=== PATIENT | female | born 1965 | race African-American/Black ===

== ENCOUNTER 2025-04-23 20:30 | Inpatient (IN) | payer MEDICAID ==
[2025-04-23] MEDS ORDERED: Glucagon 1 MG/ML KIT IM PRN (23:57)
[2025-04-23] MEDS ORDERED: Dextrose 50% Abboject 50 ML SYRINGE SLOW IVP PRN (23:57)
[2025-04-23] MEDS ORDERED: Melatonin 3 MG TAB PO PRN (23:59)
[2025-04-24] MEDS ORDERED: Calcium Carbonate 500 MG ChewTAB PO PRN (00:05)
[2025-04-24] MEDS ORDERED: Senokot S 8.6-50 MG TAB PO PRN (00:05)
[2025-04-24] MEDS ORDERED: OxyCODONE IR 30 MG TAB PO PRN (00:05)
[2025-04-24] MEDS ORDERED: Ondansetron PF 4 MG/2 ML Vial IVP PRN (00:05)
[2025-04-24] MEDS ORDERED: Electrolyte Replacement Protocol 1 EACH FS SCH (00:15)
[2025-04-24] MEDS: oxyCODONE 5 MG TAB PO PRN (01:18)
[2025-04-24] MEDS: Acetaminophen 325 MG TAB PO PRN (04:34)
[2025-04-24] MEDS: HYDROmorphone 0.5 MG/0.5 ML SYRINGE SLOW IVP SCH (04:35)
[2025-04-24] MEDS: diphenhydrAMINE 50 MG/ML VIAL IVP SCH (04:35)
[2025-04-24 05:11] LABS: Hematocrit 18.1 % (36.0-47.0); Hemoglobin 6.2 g/dL (12.0-16.0); Mean Corpuscular Hemoglobin 32.0 pg (27.0-31.0); Mean Corpuscular Volume 93.3 fL (78.0-98.0); Platelet Count 253 10x3/uL (130-400); Red Blood Cell (RBC) Count 1.94 mill/uL (4.20-5.40); White Blood Cell (WBC) Count 18.56 10x3/uL (4.8-10.8)
[2025-04-24 05:24] LABS: ALT (SGPT) 65 U/L (Less than 34); AST (SGOT) 97 U/L (11-34); Albumin 3.6 g/dL (3.1-4.5); Alkaline Phosphatase 137 U/L (40-110); Anion Gap 12 mmol/L (10-20); BUN (Urea Nitrogen) 18 mg/dL (9.8-20.1); Bilirubin, Total 2.9 mg/dL (0.3-1.2); Calc. Creatinine Clearance 101 mL/min (70-130); Calcium 8.6 mg/dL (7.8-10.44); Carbon Dioxide 27 mmol/L (22-29); Chloride 106 mmol/L (98-107); Globulin 4.0 g/dL (2.4-3.5); Glucose 123 mg/dL (70-105); Potassium 4.3 mmol/L (3.5-5.1); Sodium 141 mmol/L (136-145)
[2025-04-24 05:46] LABS: Anisocytosis SLIGHT = 6-15 cells HPF (0-5); Nucleated RBC (Manual Ct) 3 % (0); Platelet Adequacy Comment Platelets Normal; Schistocytes SLIGHT = 2-5 cells HPF (0-1); Sickle Cells SLIGHT = 1-5 cells HPF (None Seen); Smudge Cells 12.9 %; Target Cells SLIGHT = 2-5 cells HPF (0-1)
[2025-04-24] MEDS: Carvedilol 3.125 MG TAB PO SCH (08:26)
[2025-04-24] MEDS: Sertraline 25 MG TAB PO SCH (08:26)
[2025-04-24] MEDS: glipiZIDE 5 MG TAB PO SCH (08:26)
[2025-04-24] MEDS: Folic Acid 1 MG TAB PO SCH (08:27)
[2025-04-24] MEDS: Gabapentin 300 MG CAP PO SCH (08:27)
[2025-04-24] MEDS: Famotidine/PF 20 mg/2ml Vial SLOW IVP SCH (08:28)
[2025-04-24] MEDS ORDERED: VOXELOTOR 500 MG PO SCH (09:00)
[2025-04-24] MEDS ORDERED: Albuterol 200 PUFF (6.7GM INHALER) INH PRN (09:20)
[2025-04-24] MEDS ORDERED: Senokot 8.6 MG TAB PO PRN (09:20)
[2025-04-24 11:19] VITALS: BMI 32.2
[2025-04-24 11:38] LABS: Hematocrit 21.5 % (36.0-47.0); Hemoglobin 7.3 g/dL (12.0-16.0)
[2025-04-24] MEDS ORDERED: Iopamidol-370 76% 500 ML MDV (1 ML CHARGE) ONE (12:43)
[2025-04-24] MEDS: Furosemide 20 MG TAB PO SCH (16:55)
[2025-04-24] MEDS: Nitroglycerin 0.4 MG TAB (25 Tab Bottle) SL PRN (18:53)
[2025-04-24] MEDS: Apixaban 2.5 MG TAB PO SCH (20:15)
[2025-04-24] MEDS ORDERED: Non-Formulary Item 1 EACH (Budesonide-Formoterol [Symbicort 160-4.5] 160 MG/4.5 MG Aer) INH SCH (21:00)
[2025-04-24] MEDS: Mometasone 200 MCG/Formoterol 5 MCG 120 PUFF INHALER INH SCH (21:11)
[2025-04-25] MEDS: cefTRIAXone\\ROCEPHIN 1 GM in Sodium Chloride 0.9% 100 ML IVPB SCH ×2 (01:50→23:31)
[2025-04-25] MEDS: Azithromycin 500 MG in Sodium Chloride 0.9% 250 ML 250 ML IVPB SCH (01:51)
[2025-04-25] MEDS: diphenhydrAMINE 25 MG CAP PO PRN (02:48)
[2025-04-25 06:41] LABS: #Basophils 0.16 10x3/uL (0.0-0.2); #Eosinophils 1.07 10x3/uL (0.0-0.7); #Monocytes 1.75 10x3/uL (0.11-0.59); #Neutrophils 11.27 10x3/uL (1.40-6.50); %Basophils 0.9 % (0.0-1.0); %Eosinophils 5.9 % (0.0-10.0); %Lymphocytes 20.3 % (21.0-51.0); %Monocytes 9.7 % (0.0-10.0); %Neutrophils 62.5 % (42.0-75.0); Hematocrit 22.0 % (36.0-47.0); Hemoglobin 7.7 g/dL (12.0-16.0); Mean Corpuscular Hemoglobin 31.8 pg (27.0-31.0); Mean Corpuscular Volume 90.9 fL (78.0-98.0); Platelet Count 183 10x3/uL (130-400); Red Blood Cell (RBC) Count 2.42 mill/uL (4.20-5.40); White Blood Cell (WBC) Count 18.03 10x3/uL (4.8-10.8)
[2025-04-25 07:01] LABS: Anion Gap 13 mmol/L (10-20); BUN (Urea Nitrogen) 14 mg/dL (9.8-20.1); Calc. Creatinine Clearance 107 mL/min (70-130); Calcium 8.7 mg/dL (7.8-10.44); Carbon Dioxide 28 mmol/L (22-29); Chloride 104 mmol/L (98-107); Glucose 105 mg/dL (70-105); Potassium 4.7 mmol/L (3.5-5.1); Sodium 140 mmol/L (136-145)
[2025-04-25] MEDS: Aspirin 81 mg Enteric Coated Tablet PO SCH (08:39)
[2025-04-25] MEDS ORDERED: DEFERASIROX 360 MG PO SCH ×2 (09:00)
[2025-04-25] MEDS ORDERED: PHOS-NAK 1 PKT PACK PO PRN (09:45)
[2025-04-25] MEDS ORDERED: Magnesium 2 GM/50 ML(in water) 2 GM in Premix 1 BAG IVPB PRN (09:45)
[2025-04-25] MEDS ORDERED: Potassium Chloride 20 MEQ in Premix 1 BAG IVPB PRN (09:45)
[2025-04-26] MEDS: Azithromycin 500 MG in Sodium Chloride 0.9% 250 ML 250 ML IVPB SCH (01:37)
[2025-04-26 08:53] LABS: Anion Gap 15 mmol/L (10-20); BUN (Urea Nitrogen) 12 mg/dL (9.8-20.1); Calc. Creatinine Clearance 132 mL/min (70-130); Calcium 8.6 mg/dL (7.8-10.44); Carbon Dioxide 27 mmol/L (22-29); Chloride 103 mmol/L (98-107); Glucose 107 mg/dL (70-105); Potassium 4.6 mmol/L (3.5-5.1); Sodium 140 mmol/L (136-145)
[2025-04-26 09:33] LABS: Anisocytosis MODERATE=16-30 cells HPF (0-5); Hematocrit 20.0 % (36.0-47.0); Hemoglobin 6.7 g/dL (12.0-16.0); Macrocytosis SLIGHT = 6-15 cells HPF (0-5); Mean Corpuscular Hemoglobin 30.7 pg (27.0-31.0); Mean Corpuscular Volume 91.7 fL (78.0-98.0); Nucleated RBC (Manual Ct) 1 % (0); Platelet Adequacy Comment Platelets Normal; Platelet Count 206 10x3/uL (130-400); Polychromasia SLIGHT = 2-3 cells HPF (0-2); Red Blood Cell (RBC) Count 2.18 mill/uL (4.20-5.40); Sickle Cells SLIGHT = 1-5 cells HPF (None Seen); Smudge Cells 4.9 %; Stomatocytes SLIGHT = 2-5 cells HPF (0-1); Target Cells MODERATE= 6-15 cells HPF (0-1); White Blood Cell (WBC) Count 16.02 10x3/uL (4.8-10.8)
[2025-04-26] MEDS: Famotidine 20 MG TAB PO SCH (20:18)
[2025-04-27 04:04] LABS: #Basophils 0.13 10x3/uL (0.0-0.2); #Eosinophils 1.01 10x3/uL (0.0-0.7); #Monocytes 1.75 10x3/uL (0.11-0.59); #Neutrophils 12.39 10x3/uL (1.40-6.50); %Basophils 0.7 % (0.0-1.0); %Eosinophils 5.6 % (0.0-10.0); %Lymphocytes 14.9 % (21.0-51.0); %Monocytes 9.7 % (0.0-10.0); %Neutrophils 68.3 % (42.0-75.0); Hematocrit 18.7 % (36.0-47.0); Hemoglobin 6.4 g/dL (12.0-16.0); Mean Corpuscular Hemoglobin 31.5 pg (27.0-31.0); Mean Corpuscular Volume 92.1 fL (78.0-98.0); Platelet Count 191 10x3/uL (130-400); Red Blood Cell (RBC) Count 2.03 mill/uL (4.20-5.40); White Blood Cell (WBC) Count 18.13 10x3/uL (4.8-10.8)
[2025-04-27 04:20] LABS: Anion Gap 11 mmol/L (10-20); BUN (Urea Nitrogen) 12 mg/dL (9.8-20.1); Calc. Creatinine Clearance 134 mL/min (70-130); Calcium 8.5 mg/dL (7.8-10.44); Carbon Dioxide 33 mmol/L (22-29); Chloride 100 mmol/L (98-107); Glucose 132 mg/dL (70-105); Potassium 4.4 mmol/L (3.5-5.1); Sodium 140 mmol/L (136-145)
[2025-04-27] MEDS ORDERED: diphenhydrAMINE 25 MG CAP PO PRN (10:15)
[2025-04-27] MEDS: diphenhydrAMINE 50 MG/ML VIAL IVP PRN (11:24)
[2025-04-27] MEDS: Furosemide 40 MG (4 mL) VIAL IVP PRN (15:25)
[2025-04-27] MEDS: Apixaban 2.5 MG TAB PO SCH (22:19)
[2025-04-28 07:45] LABS: Anion Gap 15 mmol/L (10-20); BUN (Urea Nitrogen) 24 mg/dL (9.8-20.1); Calc. Creatinine Clearance 85 mL/min (70-130); Calcium 9.1 mg/dL (7.8-10.44); Carbon Dioxide 30 mmol/L (22-29); Chloride 98 mmol/L (98-107); Glucose 117 mg/dL (70-105); Potassium 4.6 mmol/L (3.5-5.1); Sodium 138 mmol/L (136-145)
[2025-04-28 08:04] LABS: Hematocrit 25.4 % (36.0-47.0); Hemoglobin 8.5 g/dL (12.0-16.0); Mean Corpuscular Hemoglobin 30.5 pg (27.0-31.0); Mean Corpuscular Volume 91.0 fL (78.0-98.0); Platelet Count 210 10x3/uL (130-400); Red Blood Cell (RBC) Count 2.79 mill/uL (4.20-5.40); White Blood Cell (WBC) Count 20.58 10x3/uL (4.8-10.8)
[2025-04-28 08:57] LABS: Anisocytosis SLIGHT = 6-15 cells HPF (0-5); Giant Platelets 2.0 % (0-5); Macrocytosis SLIGHT = 6-15 cells HPF (0-5); Platelet Adequacy Comment Platelets Normal; Polychromasia SLIGHT = 2-3 cells HPF (0-2); Schistocytes SLIGHT = 2-5 cells HPF (0-1); Sickle Cells SLIGHT = 1-5 cells HPF (None Seen); Smudge Cells 9.8 %; Target Cells SLIGHT = 2-5 cells HPF (0-1); Toxic Granulation SLIGHT
[2025-04-28] MEDS ORDERED: Aquaphor 2.8 oz 80 GM JAR TOP PRN (10:56)
[2025-04-28] MEDS: diphenhydrAMINE 25 MG CAP PO PRN (12:06)
[2025-04-28] MEDS: Gabapentin 400 MG CAP PO SCH (16:06)
[2025-04-29 04:33] LABS: Hematocrit 23.4 % (36.0-47.0); Hemoglobin 8.2 g/dL (12.0-16.0); Mean Corpuscular Hemoglobin 31.3 pg (27.0-31.0); Mean Corpuscular Volume 89.3 fL (78.0-98.0); Platelet Count 200 10x3/uL (130-400); Red Blood Cell (RBC) Count 2.62 mill/uL (4.20-5.40); White Blood Cell (WBC) Count 18.87 10x3/uL (4.8-10.8)
[2025-04-29 05:06] LABS: Anisocytosis SLIGHT = 6-15 cells HPF (0-5); Macrocytosis SLIGHT = 6-15 cells HPF (0-5); Nucleated RBC (Manual Ct) 1 % (0); Platelet Adequacy Comment Platelets Normal; Polychromasia SLIGHT = 2-3 cells HPF (0-2); Sickle Cells SLIGHT = 1-5 cells HPF (None Seen); Smudge Cells 17.8 %; Target Cells SLIGHT = 2-5 cells HPF (0-1)
[2025-04-29 05:13] LABS: Anion Gap 13 mmol/L (10-20); BUN (Urea Nitrogen) 27 mg/dL (9.8-20.1); Calc. Creatinine Clearance 97 mL/min (70-130); Calcium 8.9 mg/dL (7.8-10.44); Carbon Dioxide 35 mmol/L (22-29); Chloride 99 mmol/L (98-107); Glucose 106 mg/dL (70-105); Magnesium 1.9 mg/dL (1.6-2.6); Potassium 4.9 mmol/L (3.5-5.1); Sodium 142 mmol/L (136-145)
[2025-04-29] MEDS: Divalproex Sodium DR 500 MG TAB PO SCH (21:00)
[2025-04-30 06:23] LABS: Hematocrit 24.3 % (36.0-47.0); Hemoglobin 8.0 g/dL (12.0-16.0); Mean Corpuscular Hemoglobin 30.2 pg (27.0-31.0); Mean Corpuscular Volume 91.7 fL (78.0-98.0); Platelet Count 209 10x3/uL (130-400); Red Blood Cell (RBC) Count 2.65 mill/uL (4.20-5.40); White Blood Cell (WBC) Count 18.78 10x3/uL (4.8-10.8)
[2025-04-30 06:40] LABS: Anion Gap 11 mmol/L (10-20); BUN (Urea Nitrogen) 29 mg/dL (9.8-20.1); Calc. Creatinine Clearance 99 mL/min (70-130); Calcium 8.9 mg/dL (7.8-10.44); Carbon Dioxide 32 mmol/L (22-29); Chloride 101 mmol/L (98-107); Glucose 109 mg/dL (70-105); Potassium 5.3 mmol/L (3.5-5.1); Sodium 139 mmol/L (136-145)
[2025-04-30 06:45] LABS: Macrocytosis MODERATE=16-30 cells HPF (0-5); Other Cell Types 1.0; Platelet Adequacy Comment Platelets Normal; Polychromasia SLIGHT = 2-3 cells HPF (0-2); Sickle Cells SLIGHT = 1-5 cells HPF (None Seen); Smudge Cells 4.8 %; Target Cells SLIGHT = 2-5 cells HPF (0-1)
[2025-04-30 15:35] LABS: Potassium 3.4 mmol/L (3.5-5.1)
[2025-04-30] MEDS: DC Electrolyte Protocol FS ONE (22:33)
[2025-05-01 06:02] LABS: Hematocrit 21.9 % (36.0-47.0); Hemoglobin 7.1 g/dL (12.0-16.0); Mean Corpuscular Hemoglobin 30.5 pg (27.0-31.0); Mean Corpuscular Volume 94.0 fL (78.0-98.0); Platelet Count 176 10x3/uL (130-400); Red Blood Cell (RBC) Count 2.33 mill/uL (4.20-5.40); White Blood Cell (WBC) Count 17.93 10x3/uL (4.8-10.8)
[2025-05-01 06:21] LABS: Anion Gap 8 mmol/L (10-20); BUN (Urea Nitrogen) 26 mg/dL (9.8-20.1); Calc. Creatinine Clearance 120 mL/min (70-130); Calcium 8.8 mg/dL (7.8-10.44); Carbon Dioxide 38 mmol/L (22-29); Chloride 103 mmol/L (98-107); Glucose 99 mg/dL (70-105); Potassium 5.2 mmol/L (3.5-5.1); Sodium 144 mmol/L (136-145)
[2025-05-01 07:32] LABS: Giant Platelets 1.0 % (0-5); Platelet Adequacy Comment Platelets Normal; Polychromasia SLIGHT = 2-3 cells HPF (0-2); Sickle Cells SLIGHT = 1-5 cells HPF (None Seen); Smudge Cells 1.0 %; Spherocytes SLIGHT = 1-5 cells HPF (None Seen)
[2025-05-01] MEDS: Gabapentin 300 MG CAP PO SCH ×2 (14:24→20:42)
[2025-05-01 14:25] LABS: Actual Bicarbonate (HCO3v) 35.2 mEq/L (22-28); Base Excess 8.4 mEq/L (-2.0 to +3.0); Calcium, Ionized (venous) 1.10 mmol/L (1.16-1.32); Chloride (VBG) 103 mmol/L (98-106); Hematocrit-VBG 23 % (36.0-47.0); Hemoglobin (Hb) 7.9 g/dL (11.7-16.0); Potassium (VBG) 5.22 mmol/L (3.70-5.30); Sodium 142 mmol/L (133-146)
[2025-05-01 14:39] LABS: Anion Gap 8 mmol/L (10-20); BUN (Urea Nitrogen) 25 mg/dL (9.8-20.1); Calc. Creatinine Clearance 125 mL/min (70-130); Calcium 8.7 mg/dL (7.8-10.44); Carbon Dioxide 36 mmol/L (22-29); Chloride 104 mmol/L (98-107); Glucose 95 mg/dL (70-105); Potassium 5.3 mmol/L (3.5-5.1); Sodium 143 mmol/L (136-145)
[2025-05-01 15:44] LABS: Actual Bicarbonate (HCO3a) 36.5 mEq/L (22-28); Base Excess (BEa) 8.9 mEq/L (-2.0 to +3.0); Calcium, Ionized (arterial) 1.20 mmol/L (1.12-1.30); Hematocrit-ABG 23 % (36.0-47.0); Hemoglobin (Hb) 7.9 g/dL (12.0-16.0); O2 Tension (PaO2), arterial 99.0 mmHg (80.0-100.0); Potassium - ABG Lab 5.04 mmol/L (3.70-5.30); pH, Arterial 7.309 (7.35-7.45)
[2025-05-01 15:47] LABS: CO2 Tension 74.4 mmHg (35.0-45.0)
[2025-05-01 16:44] VITALS: BP 126/63
[2025-05-02] MEDS: oxyCODONE 5 MG TAB PO PRN (02:43)
[2025-05-02 05:12] LABS: Hematocrit 22.3 % (36.0-47.0); Hemoglobin 6.9 g/dL (12.0-16.0); Mean Corpuscular Hemoglobin 29.6 pg (27.0-31.0); Mean Corpuscular Volume 95.7 fL (78.0-98.0); Platelet Count 173 10x3/uL (130-400); Red Blood Cell (RBC) Count 2.33 mill/uL (4.20-5.40); White Blood Cell (WBC) Count 16.95 10x3/uL (4.8-10.8)
[2025-05-02 05:28] LABS: Anion Gap 8 mmol/L (10-20); BUN (Urea Nitrogen) 19 mg/dL (9.8-20.1); Calc. Creatinine Clearance 136 mL/min (70-130); Calcium 8.9 mg/dL (7.8-10.44); Carbon Dioxide 32 mmol/L (22-29); Chloride 106 mmol/L (98-107); Glucose 132 mg/dL (70-105); Potassium 4.7 mmol/L (3.5-5.1); Sodium 141 mmol/L (136-145)
[2025-05-02 05:34] LABS: Platelet Adequacy Comment Platelets Normal; Polychromasia SLIGHT = 2-3 cells HPF (0-2); Sickle Cells SLIGHT = 1-5 cells HPF (None Seen); Smudge Cells 11.7 %; Target Cells SLIGHT = 2-5 cells HPF (0-1)
[2025-05-02 11:23] LABS: Actual Bicarbonate (HCO3v) 29.9 mEq/L (22-28); Base Excess 3.5 mEq/L (-2.0 to +3.0); Calcium, Ionized (venous) 1.13 mmol/L (1.16-1.32); Chloride (VBG) 105 mmol/L (98-106); Hematocrit-VBG 25 % (36.0-47.0); Hemoglobin (Hb) 8.5 g/dL (11.7-16.0); Potassium (VBG) 4.92 mmol/L (3.70-5.30); Sodium 143 mmol/L (133-146)
[2025-05-02 17:16] LABS: #Basophils 0.15 10x3/uL (0.0-0.2); #Eosinophils 0.71 10x3/uL (0.0-0.7); #Monocytes 1.26 10x3/uL (0.11-0.59); #Neutrophils 11.35 10x3/uL (1.40-6.50); %Basophils 0.9 % (0.0-1.0); %Eosinophils 4.5 % (0.0-10.0); %Lymphocytes 14.3 % (21.0-51.0); %Monocytes 8.0 % (0.0-10.0); %Neutrophils 71.7 % (42.0-75.0); Hematocrit 25.3 % (36.0-47.0); Hemoglobin 8.1 g/dL (12.0-16.0); Mean Corpuscular Hemoglobin 29.7 pg (27.0-31.0); Mean Corpuscular Volume 92.7 fL (78.0-98.0); Platelet Count 204 10x3/uL (130-400); Red Blood Cell (RBC) Count 2.73 mill/uL (4.20-5.40); White Blood Cell (WBC) Count 15.83 10x3/uL (4.8-10.8)
[2025-05-02 18:05] LABS: Anisocytosis MODERATE=16-30 cells HPF (0-5); Macrocytosis SLIGHT = 6-15 cells HPF (0-5); Nucleated RBC (Manual Ct) 3 % (0); Ovalocytes SLIGHT = 2-5 cells HPF (0-1); Platelet Adequacy Comment Platelets Normal; Polychromasia SLIGHT = 2-3 cells HPF (0-2); Sickle Cells SLIGHT = 1-5 cells HPF (None Seen); Smudge Cells 4.9 %; Stomatocytes SLIGHT = 2-5 cells HPF (0-1); Target Cells SLIGHT = 2-5 cells HPF (0-1)
[2025-05-03] MEDS: Mupirocin 1 GM TUBE NASAL DECOLONIZATION NASAL SCH (21:03)
[2025-05-04 05:19] VITALS: BMI 32.3
[2025-05-04 05:36] LABS: Hematocrit 23.3 % (36.0-47.0); Hemoglobin 7.3 g/dL (12.0-16.0); Mean Corpuscular Hemoglobin 29.2 pg (27.0-31.0); Mean Corpuscular Volume 93.2 fL (78.0-98.0); Platelet Count 180 10x3/uL (130-400); Red Blood Cell (RBC) Count 2.50 mill/uL (4.20-5.40); White Blood Cell (WBC) Count 18.00 10x3/uL (4.8-10.8)
[2025-05-04 05:52] LABS: Anion Gap 11 mmol/L (10-20); BUN (Urea Nitrogen) 13 mg/dL (9.8-20.1); Calc. Creatinine Clearance 164 mL/min (70-130); Calcium 8.4 mg/dL (7.8-10.44); Carbon Dioxide 33 mmol/L (22-29); Chloride 100 mmol/L (98-107); Glucose 95 mg/dL (70-105); Potassium 4.0 mmol/L (3.5-5.1); Sodium 140 mmol/L (136-145)
[2025-05-04 06:03] LABS: Platelet Adequacy Comment Platelets Normal; Polychromasia SLIGHT = 2-3 cells HPF (0-2); Sickle Cells SLIGHT = 1-5 cells HPF (None Seen); Smudge Cells 5.8 %; Target Cells SLIGHT = 2-5 cells HPF (0-1)
[2025-05-05 04:25] VITALS: TEMP 97.3
[2025-05-05 04:31] LABS: Anion Gap 11 mmol/L (10-20); BUN (Urea Nitrogen) 16 mg/dL (9.8-20.1); Calc. Creatinine Clearance 134 mL/min (70-130); Calcium 8.5 mg/dL (7.8-10.44); Carbon Dioxide 31 mmol/L (22-29); Chloride 100 mmol/L (98-107); Glucose 140 mg/dL (70-105); Potassium 3.9 mmol/L (3.5-5.1); Sodium 138 mmol/L (136-145)
[2025-05-05 04:39] LABS: Hematocrit 22.0 % (36.0-47.0); Hemoglobin 6.8 g/dL (12.0-16.0); Mean Corpuscular Hemoglobin 28.8 pg (27.0-31.0); Mean Corpuscular Volume 93.2 fL (78.0-98.0); Platelet Count 167 10x3/uL (130-400); Red Blood Cell (RBC) Count 2.36 mill/uL (4.20-5.40); White Blood Cell (WBC) Count 17.95 10x3/uL (4.8-10.8)
[2025-05-05 05:35] LABS: #Basophils 0.19 10x3/uL (0.0-0.2); #Eosinophils 0.41 10x3/uL (0.0-0.7); #Monocytes 1.69 10x3/uL (0.11-0.59); #Neutrophils 12.37 10x3/uL (1.40-6.50); %Basophils 1.1 % (0.0-1.0); %Eosinophils 2.3 % (0.0-10.0); %Lymphocytes 17.8 % (21.0-51.0); %Monocytes 9.4 % (0.0-10.0); %Neutrophils 68.8 % (42.0-75.0)
[2025-05-05 12:52] LABS: Hematocrit 28.2 % (36.0-47.0); Hemoglobin 9.3 g/dL (12.0-16.0); Mean Corpuscular Hemoglobin 29.3 pg (27.0-31.0); Mean Corpuscular Volume 89.0 fL (78.0-98.0); Platelet Count 172 10x3/uL (130-400); Red Blood Cell (RBC) Count 3.17 mill/uL (4.20-5.40); White Blood Cell (WBC) Count 16.33 10x3/uL (4.8-10.8)
== END 2025-05-05 06:00 | disposition home or self-care (01) | DRG 811 ==
LOC: T4-B 23:01 → OBSVTOIN 04-24 15:17 → IMCU/EMU 05-01 18:11
PROVIDERS: ADMIT Internal Medicine; ATTEND Internal Medicine
PROC: 5A09357 Assistance with Respiratory Ventilation, Less than 24 Consecutive Hours, Continuous Positive Airway Pressure (ICD-10-PCS; principal; 2025-04-24)
PROC: 30233N1 Transfusion of Nonautologous Red Blood Cells into Peripheral Vein, Percutaneous Approach (ICD-10-PCS; principal; 2025-04-24)
DX: D57.00 Hb-SS disease with crisis, unspecified (principal); J18.9 Pneumonia, unspecified organism; J96.22 Acute and chronic respiratory failure with hypercapnia; J96.11 Chronic respiratory failure with hypoxia; I13.0 Hypertensive heart and chronic kidney disease with heart failure and stage 1 through stage 4 chronic kidney disease, or unspecified chronic kidney disease; J44.0 Chronic obstructive pulmonary disease with (acute) lower respiratory infection; I50.9 Heart failure, unspecified; I48.0 Paroxysmal atrial fibrillation; I27.20 Pulmonary hypertension, unspecified; N18.9 Chronic kidney disease, unspecified; E87.5 Hyperkalemia; E11.22 Type 2 diabetes mellitus with diabetic chronic kidney disease; K59.00 Constipation, unspecified; M54.50 Low back pain, unspecified; G89.29 Other chronic pain; G43.909 Migraine, unspecified, not intractable, without status migrainosus; Z99.81 Dependence on supplemental oxygen; Z88.8 Allergy status to other drugs, medicaments and biological substances; Z79.899 Other long term (current) drug therapy
CPT/HCPCS: 36415; 36416; 36430; 70450; 71045; 71275; 80048; 80053; 82805; 83615; 83735; 84145; 84484; 85025; 85046; 85660; 86141; 86850; 86900; 86901; 86921; 86922; 93005; 93010; 93306; 94660; 94664; 94760; 96374; 96375; 96376; G0378; J0456; J0696; J1171; J1200; J1308; J1885; J1940; J2270; J7030; J7050; J7120; P9016; Q9967

== ENCOUNTER 2025-05-11 13:17 | Emergency (ER) | payer MEDICAID, SELFPAY ==
[2025-05-11 14:31] LABS: Hematocrit 27.3 % (36.0-47.0); Hemoglobin 9.2 g/dL (12.0-16.0); Mean Corpuscular Hemoglobin 28.4 pg (27.0-31.0); Mean Corpuscular Volume 84.3 fL (78.0-98.0); Platelet Count 124 10x3/uL (130-400); Red Blood Cell (RBC) Count 3.24 mill/uL (4.20-5.40); White Blood Cell (WBC) Count 27.65 10x3/uL (4.8-10.8)
[2025-05-11 14:47] LABS: ALT (SGPT) 102 U/L (Less than 34); AST (SGOT) 103 U/L (11-34); Albumin 4.1 g/dL (3.1-4.5); Alkaline Phosphatase 167 U/L (40-110); Anion Gap 14 mmol/L (10-20); BUN (Urea Nitrogen) 16 mg/dL (9.8-20.1); Bilirubin, Total 2.6 mg/dL (0.3-1.2); Calc. Creatinine Clearance 0 mL/min (70-130); Calcium 9.6 mg/dL (7.8-10.44); Carbon Dioxide 25 mmol/L (22-29); Chloride 103 mmol/L (98-107); Globulin 4.4 g/dL (2.4-3.5); Glucose 117 mg/dL (70-105); Potassium 4.4 mmol/L (3.5-5.1); Sodium 138 mmol/L (136-145)
[2025-05-11 15:10] LABS: Anisocytosis MARKED = >30 cells HPF (0-5); Macrocytosis MODERATE=16-30 cells HPF (0-5); Ovalocytes SLIGHT = 2-5 cells HPF (0-1); Platelet Adequacy Comment Platelets Decreased; Polychromasia SLIGHT = 2-3 cells HPF (0-2); Smudge Cells 3.0 %
[2025-05-11] MEDS ORDERED: diphenhydrAMINE 50 MG/ML VIAL ONE (15:18)
[2025-05-11] MEDS ORDERED: Metoprolol Tartrate 5 MG (5 mL) VIAL ONE (15:19)
== END 2025-05-11 16:28 | disposition home or self-care (01) ==
LOC: ERS 13:17
DX: I48.0 Paroxysmal atrial fibrillation (principal); D57.00 Hb-SS disease with crisis, unspecified; I11.0 Hypertensive heart disease with heart failure; I50.9 Heart failure, unspecified; J44.9 Chronic obstructive pulmonary disease, unspecified; E11.9 Type 2 diabetes mellitus without complications; I69.351 Hemiplegia and hemiparesis following cerebral infarction affecting right dominant side; Z79.01 Long term (current) use of anticoagulants
CPT/HCPCS: 71045; 80053; 83880; 84484; 85025; 93005; 96374; 96375; J1200; J2270